=== PATIENT | female | born 1975 | race Caucasian/White ===

== ENCOUNTER 2023-03-14 10:33 | Outpatient (OUT) | payer BC, SELFPAY ==
--- NOTE | 2023-03-14 | MM_ITS ---
Patient Name: FRANCISCO JAVIER GUARDADO MR#: [id number] : 1975 Exam Date: 03/14/2023 Ordering Doctor: DR Polo Guardado . RADIOLOGY REPORT PROCEDURE: MM TOMOSYNTHESIS SCREENING BI COMPARISON: MG MAMM SCREEN 3D BRANT CAD, 03/13/2022. MG MAMM SCREEN 3D BRANT CAD, 03/08/2021. MG MAMM SCREEN BRANT W CAD, 03/05/2020. MG MAMM BRANT SCRN W CAD DIG, 12/30/2015. INDICATIONS: Screening for malignant neoplasm Calculator Name NCI Breast Cancer Risk Assessment Tool 5 Year Breast Cancer Risk 1.00% Lifetime Breast Cancer Risk 10.30% Personal Breast Cancer No Personal Ovarian Cancer No Treatments None Family Cancers None LOCATION: [facility] BREAST COMPOSITION: Scattered areas fibroglandular density. FINDINGS: DIAGNOSTIC CATEGORY 1--NEGATIVE. RIGHT BREAST: No significant suspicious finding. No significant change has occurred. LEFT BREAST: No significant suspicious finding. No significant change has occurred. RECOMMENDATIONS: ROUTINE MAMMOGRAM AND CLINICAL EVALUATION IN 12 MONTHS. PLEASE NOTE: A NORMAL MAMMOGRAM DOES NOT EXCLUDE THE POSSIBILITY OF BREAST CANCER. A CLINICALLY SUSPICIOUS PALPABLE LUMP SHOULD BE BIOPSIED. Dictated by: Erasto Bedoya M.D. on 03/16/2023 at 12:32 Approved by: Erasto Bedoya M.D. on 03/16/2023 at 12:35
== END 2023-03-14 10:34 | disposition home or self-care (01) ==
LOC: MAMMO 10:33
PROVIDERS: PCP Family Medicine; Visit Provider Obstetrics & Gynecology
DX: Z12.31 Encounter for screening mammogram for malignant neoplasm of breast (principal)
CPT/HCPCS: 77063; 77067

== ENCOUNTER 2024-03-10 09:42 | Outpatient (OUT) | payer BC, SELFPAY | END 2024-03-10 09:43 | disposition home or self-care (01) | LOC: PST 09:42 | PROVIDERS: PCP Family Medicine; Visit Provider Surgery | DX: Z01.818 Encounter for other preprocedural examination (principal); Z12.11 Encounter for screening for malignant neoplasm of colon ==

== ENCOUNTER 2024-03-19 10:29 | Outpatient (OUT) | payer BC, SELFPAY ==
--- NOTE | 2024-03-19 10:34 | MM_ITS ---
Patient Name: FRANCISCO JAVIER GUARDADO MR#: [id number] : 1975 Exam Date: 03/19/2024 Ordering Doctor: DR Polo Guardado . RADIOLOGY REPORT PROCEDURE: MM TOMOSYNTHESIS SCREENING BI COMPARISON: MG MAMM SCREEN 3D BRANT CAD, 03/13/2022. MM TOMOSYNTHESIS SCREENING BI, 03/14/2023. INDICATIONS: Screening Calculator Name NCI Breast Cancer Risk Assessment Tool 5 Year Breast Cancer Risk 1.00% Lifetime Breast Cancer Risk 10.20% Personal Breast Cancer No Personal Ovarian Cancer No Treatments None Family Cancers None LOCATION: [facility] BREAST COMPOSITION: There are scattered areas of fibroglandular density. FINDINGS: DIAGNOSTIC CATEGORY 2--BENIGN FINDING. NO CHANGE FROM COMPARISON. Scattered benign-appearing calcifications are present. Scattered benign-appearing lymph nodes are present. RIGHT BREAST: No significant suspicious finding. LEFT BREAST: No significant suspicious finding. RECOMMENDATIONS: ROUTINE MAMMOGRAM AND CLINICAL EVALUATION IN 12 MONTHS. PLEASE NOTE: A NORMAL MAMMOGRAM DOES NOT EXCLUDE THE POSSIBILITY OF BREAST CANCER. A CLINICALLY SUSPICIOUS PALPABLE LUMP SHOULD BE BIOPSIED. Dictated by: Otilio Reyes MD on 03/19/2024 at 14:00 Approved by: Otilio Reyes MD on 03/19/2024 at 14:02
== END 2024-03-19 10:30 | disposition home or self-care (01) ==
LOC: MAMMO 10:29
PROVIDERS: PCP Family Medicine; Visit Provider Obstetrics & Gynecology
DX: Z12.31 Encounter for screening mammogram for malignant neoplasm of breast (principal)
CPT/HCPCS: 77063; 77067

== ENCOUNTER 2024-04-02 08:41 | Day surgery (SDC) | payer BC, SELFPAY ==
--- NOTE | 2024-04-02 | OP_ITS ---
OPERATION DATE: 04/02/2024 PREOPERATIVE DIAGNOSIS: Colorectal screening. POSTOPERATIVE DIAGNOSIS: Right sided diverticulosis as well as moderate sigmoid diverticulosis. PROCEDURE: Colonoscopy to cecum. SURGEON: Levi Pfeiffer M.D. ANESTHESIA: Monitored anesthesia care. ESTIMATED BLOOD LOSS: Zero. INDICATIONS AND CONSENT: Patient is a 48-year-old female, presents for colorectal screening. Indications, risks, benefits, alternatives of proceeding with colonoscopy were explained extensively to the patient, including the risks of bleeding, colon perforation or anesthetic complications. All of her questions were answered. Informed consent was obtained. PROCEDURE: Patient brought to the operating room, placed in the left lateral decubitus position. Monitored anesthesia care was provided. Rectal exam was performed which showed no masses or blood. The scope was inserted into the anal canal. Under direct visualization, it was advanced. With the aid of abdominal compression, it was advanced to the cecum where cecal markings were clearly identified. There was noted to be a good prep. Upon withdrawal of the scope, mucosal surfaces were carefully examined. There were noted to be multiple right sided, large mouth diverticula in the cecum and proximal ascending colon, without inflammatory changes or scarring. There were no mass lesions or polyps. No inflammatory changes or ulcerations. There was moderate sigmoid diverticulosis without inflammatory changes or scarring. The scope was retroflexed in the anal canal. There were some prominent rectal veins, no significant hemorrhoidal disease. The scope was then withdrawn. Patient tolerated procedure well, was sent to recovery room in good condition. Follow up screening colonoscopy is recommended in 10 years. CC: Sreedhar Carmona M.D. NOY
[2024-04-02 09:05] VITALS: BP 141/78; PULSE 58; TEMP 36.1; O2SAT 99; BMI 31.6
[2024-04-02 09:10] LABS: Glucometer 109 mg/dL (74-106)
[2024-04-02] MEDS: 0.9 % SODIUM CHLORIDE 500 ML 50 ML IV (09:12)
[2024-04-02 09:13] LABS: HCG Qualitative NEGATIVE (NEGATIVE); Internal Control Within Normal Limits
[2024-04-02 09:52] VITALS: BP 106/62; PULSE 52; TEMP 36.2; O2SAT 99
[2024-04-02 10:07] VITALS: BP 101/64; PULSE 52; O2SAT 96
[2024-04-02 10:22] VITALS: BP 103/65; PULSE 45
== END 2024-04-02 10:22 | disposition home or self-care (01) ==
LOC: SURGOUT 08:42
PROVIDERS: Anesthesiology; PCP Family Medicine; Visit Provider Surgery
PROC: (CPT 45378; principal; 2024-04-02 09:30)
DX: Z12.11 Encounter for screening for malignant neoplasm of colon (principal); K57.30 Diverticulosis of large intestine without perforation or abscess without bleeding; I10 Essential (primary) hypertension; Z79.82 Long term (current) use of aspirin; Z79.84 Long term (current) use of oral hypoglycemic drugs; Z79.899 Other long term (current) drug therapy
CPT/HCPCS: 45378; 36415; 82948; 84703; J2704

== ENCOUNTER 2025-03-20 11:31 | Outpatient (OUT) | payer BC, SELFPAY ==
--- NOTE | 2025-03-20 11:34 | MM_ITS ---
Patient Name: FRANCISCO JAVIER OCONNOR MR#: [id number] : 1975 Exam Date: 03/20/2025 Ordering Doctor: DR ALIX NUNES . RADIOLOGY REPORT PROCEDURE: MM TOMOSYNTHESIS SCREENING BI COMPARISON: MM TOMOSYNTHESIS SCREENING BI, 03/19/2024. MM TOMOSYNTHESIS SCREENING BI, 03/14/2023. MG MAMM SCREEN 3D BRANT CAD, 03/13/2022. MG MAMM BRANT SCRN W CAD DIG, 12/30/2015. INDICATIONS: Screening Calculator Name NCI Breast Cancer Risk Assessment Tool 5 Year Breast Cancer Risk 1.00% Lifetime Breast Cancer Risk 10.00% Personal Breast Cancer No Personal Ovarian Cancer No Treatments None Family Cancers None LOCATION: [facility] BREAST COMPOSITION: There are scattered areas of fibroglandular density. FINDINGS: RIGHT BREAST: No significant suspicious finding. Benign-appearing calcifications are present. LEFT BREAST: No significant suspicious finding. Benign-appearing calcifications are present. DIAGNOSTIC CATEGORY 2--BENIGN FINDING. NO CHANGE FROM COMPARISON. RECOMMENDATIONS: ROUTINE MAMMOGRAM AND CLINICAL EVALUATION IN 12 MONTHS. Dictated by: Monroe Antonio MD on 03/20/2025 at 13:48 Approved by: Monroe Antonio MD on 03/20/2025 at 13:56
--- OUTSIDE RECORDS SUMMARY | 2025-03-20 11:35 | XMS_ITS | CCD ---
Author Organization [facility] Care Team Providers Care Soil Chemist Name Role Phone GEO, DR LUCAS Admitting Unavailable GEO, DR LUCAS Attending Unavailable GEO, DR LUCAS Consulting Unavailable HOY, DR THOMSON Primary Care Unavailable STEPANIC, DR JOHNSON Attending Unavailable STEPANIC, DR JOHNSON Consulting Unavailable STEPANIC, DR JOHNSON Admitting Unavailable HOY, DR THOMSON Primary Care Unavailable QUIROZ, DR VEGA Admitting Unavailable QUIROZ, DR VEGA Attending Unavailable ZIEBER, DR ERASTO [place] Consulting Unavailable MANJU, DR THOMSON Primary Care Unavailable QUIROZ, DR VEGA Consulting Unavailable STEPANIC, DR JOHNSON Attending Unavailable STEPANIC, DR JOHNSON Admitting Unavailable HOY, DR THOMSON Primary Care Unavailable QUIROZ, DR VEGA Attending Unavailable QUIROZ, DR VEGA Admitting Unavailable HOY, DR THOMSON Primary Care Unavailable GEO, DR LUCAS Admitting Unavailable HOY, DR THOMSON Primary Care Unavailable GEO, DR LUCAS Attending Unavailable GEO, DR LUCAS Consulting Unavailable ZIEBER, DR ERASTO [place] Consulting Unavailable QUIROZ, GARY Del Valle Attending Unavailable NANCI DORMAN Attending Unavailable NANCI DORMAN Attending Unavailable Alix Carmona MD Primary Care Provider [phone] MICHELA JAMIL Primary Care Physician MICHELA JAMIL Referring Unavailable Levi PERSAUD Attending Unavailable Levi PERSAUD Attending Unavailable Alix Carmona MD Primary Care Provider [phone] Allergies Allergy ClassificationReported Allergen(s)Allergy TypeDate of OnsetReaction(s) Facility (1 source)No Known Medication Allergies; Translations: [No Known Medication Allergies]Propensity to adverse reactions (disorder)[facility] Repository Medications Current Medications MedicationDrug Class(es)DatesSig (Normalized)Sig (Original)acyclovir 400 mg oral tablet (2 sources)Herpesvirus Nucleoside Analog DNA Polymerase Inhibitor, Herpes Simplex Virus Nucleoside Analog DNA Polymerase Inhibitor, Herpes Zoster Virus Nucleoside Analog DNA Polymerase InhibitorStart: 18-51-8241stsr 1 tablet by mouth at bedtimeacyclovir (Zovirax) 400 MG tablet Indications: Hx of cold sores TAKE 1 TABLET BY MOUTH IN THE MORNING AND BEFORE BEDTIME 180 tablet 1 10/22/2023 [id number] 200 actuat albuterol 0.09 mg/actuat metered dose inhaler (3 sources)beta2-Adrenergic AgonistStart: 05-07-2023 End: 95-34-2325yyrw 2 puff(s) by inhalation every four hours for wheezing albuterol HFA (Ventolin HFA) 90 mcg/act inhaler Indications: Upper respiratory tract infection, unspecified type Inhale 2 puffs every 4 (four) hours if needed for wheezing 18 g 1 05/07/2023 Activeamoxicillin 500 mg oral tablet (6 sources)Penicillin-class AntibacterialStart: 23-35-6997zbnr 4 tablets by mouth once at mealtimeamoxicillin (Amoxil) 500 MG tablet Indications: S/P TKR (total knee replacement), left 4 tabs PO once 30-60 mins before procedure with food 4 tablet 3 01/07/2024 Activeaspirin 81 mg delayed release oral tablet (4 sources)Platelet Aggregation Inhibitor, Nonsteroidal Anti-inflammatory Drug Start: 95-96-6634qhiz 1 tablet by mouth once dailyaspirin 81 mg Oral EC Tab 81 mg = 1 tab(s), Oral, Daily, Refills(s) 0 Start Date: 02/13/24 Status: Ordered hydroCHLOROthiazide 12.5 mg / lisinopril 20 mg oral tablet (4 sources)Thiazide Diuretic, Angiotensin Converting Enzyme InhibitorStart: 24-93-5153mqgi 1 tablet by mouth once dailyhydrochlorothiazide-lisinopril 12.5 mg-20 mg Tab 1 tab(s), Oral, Daily, Refill(s) 0 Start Date: 02/13/24 Status: Orderedtake 1 tablet by mouth in the morninglisinopril-hydroCHLOROthiazide 20- 12.5 MG tablet Take 1 tablet by mouth in the morning. ActivemetFORMIN hydrochloride 500 mg oral tablet (3 sources)BiguanideStart: 53-97-7926rkvt 1 tablet by mouth once dailymetformin 500 mg ER Tab 500 mg = 1 tab(s), Oral, Daily, Refills(s) 0 Start Date: 02/13/24 Status: OrderedStart: 11-19-2023 End: 58-97-8690lgho 1 tablet by mouth every twenty-four hours at mealtime metFORMIN XR (Glucophage-XR) 500 MG 24 hr tablet Indications: PCOS (polycystic ovarian syndrome) Take 1 tablet (500 mg) by mouth in the evening. Take with meals 90 tablet 3 11/19/2023 02/17/2024 ActivemethylPREDNISolone (3 sources)CorticosteroidStart: 89-08-5693ekwzkuAGORNHGxpnqv (Medrol Dospak) 4 MG tablets Indications: Upper respiratory tract infection, unspecified type Day 1: 6 tablets Day 2: 5 tablets Day 3: 4 tablets Day 4: 3 tablets Day 5: 2 tablets Day 6: 1 tablet 21 tablet 10/29/2023 ActiveMulti Vitamins oral tablet (1 source)Start: 20-68-3217dvhf 1 tablet by mouth once dailyMulti Vitamins oral tablet 1 tab(s), Oral, Daily, Refill(s) 0 Start Date: 02/13/24 Status: Ordered phentermine hydrochloride 37.5 mg oral tablet (17 sources)Sympathomimetic Amine AnorecticStart: 12-14-2022 End: 44-64-1711cuwd 1 tablet by mouth before mealtimephentermine (Adipex-P) 37.5 MG tablet Indications: Encounter for weight management Take 1 tablet (37.5 mg) by mouth in the morning. Take before meals. 90 tablet 01/25/2024 Active predniSONE 50 mg oral tablet (3 sources)Start: 57-14-2226wfyugjALZA (Deltasone) 50 MG tablet 1 (one) time each day at the same time. 07/03/2022 ActiveVitamin D2 2000 intl units oral capsule (1 source)Start: 64-05-9688tsbn 1 capsule by mouth once dailyVitamin D2 2000 intl units oral capsule 50 mcg = 1 cap(s), Oral, Daily, cap(s), Refills(s) 0 Start Date: 02/13/24 Status: Ordered Problems Active Problems Problem ClassificationProblemDateDocumented DateEpisodic/Chronic Administrative/social admission (1 source)Patient encounter status; Translations: [Persons encountering health services in other specified circumstances]84-82-8509PcxebxyxEuicqwfwz hypertension (1 source)Hypertensive nvwvtztu80-75-1362PydoszhNfktpbalxrkab and screening for infectious disease (1 source)Encounter for screening for human papillomavirus (HPV); Translations: [ENC SCREENING HUMAN PAPILLOMAVIRUS]Onset: 07-67-0110YxhwiikmOdhtx disorders and dislocations; trauma-related (3 sources)Derangement of right knee; Translations: [Unspecified internal derangement of right knee]Onset: 493845-59-7187KeiqadmMtbomlqjahfkux (9 sources)Osteoarthritis of knee; Translations: [Osteoarthritis of knee, unspecified]Onset: 254820-15-0563GbzvexnLheso connective tissue disease (4 sources)Presence of left artificial knee joint; Translations: [PRESENCE LEFT ARTIFICIAL KNEE JOINT]Onset: 86-73-1047DqpearfOtrpq connective tissue disease (3 sources)Artificial knee joint present; Translations: [Presence of unspecified artificial knee joint]Onset: 203639-08-8995IrrzoqsWamzi connective tissue disease (4 sources)History of total knee arthroplasty; Translations: [Presence of left artificial knee joint]Onset: 157696-95-9011RlovbkgXtcyr endocrine disorders (3 sources)Polycystic ovary syndrome; Translations: [Polycystic ovarian syndrome]Onset: 090432-23-3112VnwlhcrJxubk nutritional; endocrine; and metabolic disorders (1 source)Obesity caused by energy kfpasbouv16-31-6575IhwhefrMofpc screening for suspected conditions (not mental disorders or infectious disease) (5 sources)Encounter for screening for malignant neoplasm of cervix; Translations: [Encounter for screening mammogram for malignant neoplasm of breast]Onset: 07-44-3252ZwujrmnvHdycovvnperb (1 source)CONTACT W/AND (SUSP) EXPOS COVID-19; Translations: [CONTACT W/AND (SUSP) EXPOS COVID-19]Onset: 06-27-2021 Past or Other Problems Problem ClassificationProblemDateDocumented DateEpisodic/ChronicOther connective tissue disease (4 sources)Pain in left lower leg; Translations: [PAIN IN LEFT LOWER LEG]Onset: 73-76-1072DsrxninqIcakq connective tissue disease (3 sources)Pes anserinus bursitis of right knee; Translations: [Other bursitis of knee, right knee]Onset: 731174-68-7993MjateymhXphuq non-traumatic joint disorders (4 sources)Pain in right knee; Translations: [PAIN IN RIGHT KNEE]Onset: 02-30-1424NgchjemsOpqzw non-traumatic joint disorders (3 sources)Anterior knee pain; Translations: [Pain in right knee]Onset: 841043-97-8022MgqbzmabAphap non-traumatic joint disorders (3 sources)Pain in left knee; Translations: [Pain in joint, lower leg]Onset: 570954-22-0459Sctchdbz Results Test NameValueInterpretationReference RangeFacilityReminderson 04-03-2024 RemindersReminders From: Casie Broussard LPN To: N - Clinical; Sent: 04/03/2024 13:04:54 EST Show up: 03/03/2034 07:00:00 EST Subject: colonoscopy recall Due Date/Time: 04/02/2034 07:00:00 EST Reminder/Recall Patient due for screening colonoscopy 04/02/2034.[facility] TOMOS[facility]TH[facility] BIon 25-81-5738[place] [address] Mammography Report Signed Patient: FRANCISCO JAVIER GUARDADO MR#: [id number] : 1975 Acct:[id number] Age/Sex: 48 / F ADM Date: 03/19/24 Loc: MAMMO Attending Dr: Lance Guardado D.O. Ordering Physician: Lance Guardado D.O. Results: Date of Service: 03/19/24 Follow Up: Procedure(s): MM tomosynthesis screening BI Accession Number(s): [id number] cc: Lance Guardado D.O.; Alix Carmona M.D. Patient Name: FRANCISCO JAVIER GUARDADO MR#: [id number] : 1975 Exam Date: 03/19/2024 Ordering Doctor: DR Lance Guardado . RADIOLOGY REPORT PROCEDURE: MM TOMOSYNTHESIS SCREENING BI COMPARISON: MG MAMM SCREEN 3D BRANT CAD, 03/13/2022. MM TOMOSYNTHESIS SCREENING BI, 03/14/2023. INDICATIONS: Screening Calculator Name NCI Breast Cancer Risk Assessment Tool 5 Year Breast Cancer Risk 1.00% Lifetime Breast Cancer Risk 10.20% Personal Breast Cancer No Personal Ovarian Cancer No Treatments None Family Cancers None LOCATION: [facility] BREAST COMPOSITION: There are scattered areas of fibroglandular density. FINDINGS: DIAGNOSTIC CATEGORY 2--BENIGN FINDING. NO CHANGE FROM COMPARISON. Scattered benign-appearing calcifications are present. Scattered benign-appearing lymph nodes are present. RIGHT BREAST: No significant suspicious finding. LEFT BREAST: No significant suspicious finding. RECOMMENDATIONS: ROUTINE MAMMOGRAM AND CLINICAL EVALUATION IN 12 MONTHS. PLEASE NOTE: A NORMAL MAMMOGRAM DOES NOT EXCLUDE THE POSSIBILITY OF BREAST CANCER. A CLINICALLY SUSPICIOUS PALPABLE LUMP SHOULD BE BIOPSIED. Dictated by: Otilio Reyes MD on 03/19/2024 at 14:00 Approved by: Otilio Reyes MD on 03/19/2024 at 14:02 Dictated By: Otilio Reyes M.D. Signed By: 03/19/24 1403 DD/ 1402 TD/TT: Dynamic Etching Processor:TBHRadiology, RadiologistMD - 03/19/2024 [place] [address] Mammography Report Signed Patient: FRANCISCO JAVIER GUARDADO MR#: [id number] : 1975 Acct:[id number] Age/Sex: 48 / F ADM Date: 03/19/24 Loc: MAMMO Attending Dr: Lance Guardado D.O. Ordering Physician: Lance Guardado D.O. Results: Date of Service: 03/19/24 Follow Up: Procedure(s): MM tomosynthesis screening BI Accession Number(s): [id number] cc: Lance Guardado D.O.; Alix Carmona M.D. Patient Name: FRANCISCO JAVIER GUARDADO MR#: [id number] : 1975 Exam Date: 03/19/2024 Ordering Doctor: DR Lance Guardado . RADIOLOGY REPORT PROCEDURE: MM TOMOSYNTHESIS SCREENING BI COMPARISON: MG MAMM SCREEN 3D BRANT CAD, 03/13/2022. MM TOMOSYNTHESIS SCREENING BI, 03/14/2023. INDICATIONS: Screening Calculator Name NCI Breast Cancer Risk Assessment Tool 5 Year Breast Cancer Risk 1.00% Lifetime Breast Cancer Risk 10.20% Personal Breast Cancer No Personal Ovarian Cancer No Treatments None Family Cancers None LOCATION: [facility] BREAST COMPOSITION: There are scattered areas of fibroglandular density. FINDINGS: DIAGNOSTIC CATEGORY 2--BENIGN FINDING. NO CHANGE FROM COMPARISON. Scattered benign-appearing calcifications are present. Scattered benign-appearing lymph nodes are present. RIGHT BREAST: No significant suspicious finding. LEFT BREAST: No significant suspicious finding. RECOMMENDATIONS: ROUTINE MAMMOGRAM AND CLINICAL EVALUATION IN 12 MONTHS. PLEASE NOTE: A NORMAL MAMMOGRAM DOES NOT EXCLUDE THE POSSIBILITY OF BREAST CANCER. A CLINICALLY SUSPICIOUS PALPABLE LUMP SHOULD BE BIOPSIED. Dictated by: Otilio Reyes MD on 03/19/2024 at 14:00 Approved by: Otilio Reyes MD on 03/19/2024 at 14:02 Dictated By: Otilio Reyes M.D. Signed By: 03/19/24 1403 DD/ 140 TD/TT: Dynamic Etching Processor: [facility] HealthcareRadiology Study observation (narrative)[facility] TOMOSYNTHESIS SCREENING BIOrdered By: Radiologist Radiology on 21-08-1313[facility] Work Phone: pap ACOG PANEL 2: 30 to 65on 03-22-2022..NormalThe [facility] HospitalComment on above:Result Comment: Performed at: WBPerformed By: #### [id number] #### [facility] [address] [address] [address] Tasha Watts Gdln ACOG Xylxaiv84-47FdaydaUyfSelect Medical Specialty Hospital - AkronComment on above:Performed By: #### [id number] #### [facility] [address] [address] [address] Tasha SmithDIAGNOSIS:CommentWilson Street HospitalComment on above: Result Comment: NEGATIVE FOR INTRAEPITHELIAL LESION OR MALIGNANCY. CELLULAR CHANGES ASSOCIATED WITH INFLAMMATION ARE PRESENT. THIS SPECIMEN WAS RESCREENED PART OF OUR MACHINE SHOP APPRENTICE PROGRAM. Performed at: WBPerformed By: #### [id number] #### [facility] [address] [place] [address] Dr. Tasha Carlson AptimaNegativeNormalNegativeWayne Hospital on above:Result Comment: This nucleic acid amplification test detects fourteen high-risk HPV types (16,18,31,33,35,39,45,51,52,56,58,59,66,68) without differentiation. Performed at: =GPerformed By: #### [id number] #### [facility] [address] [place] [address] Dr. Tasha Carlson Genotype ReflexCommentNoOhioHealth on above:Result Comment: Criteria not met, HPV Genotype not performed. Performed at: WBPerformed By: #### [id number] #### [place] [address] Dr[address] Tasha SmithMethodology:CommentNoOhioHealth on above: Result Comment: This liquid based ThinPrep(R) pap test was screened with the use of an image guided system. Performed at: WBPerformed By: #### [id number] #### [place] [address] Dr[address] Tasha SmithNote:CommentKindred Hospital Lima on above:Result Comment: The Pap smear is a screening test designed to aid in the detection of premalignant and malignant conditions of the uterine cervix. It is not a diagnostic procedure and should not be used as the sole means of detecting cervical cancer. Both false-positive and false-negative reports do occur. . Performed at: WBPerformed By: #### [id number] #### [facility] [address] [place] [address] Dr. Tasha SmithPerformed by:CommentNoOhioHealth on above: Result Comment: Cherri Feldman Furniture Mover Driver (ASCP) Performed at: WBPerformed By: #### [id number] #### [facility] [address] [place] [address] Dr. Tasha Smith reviewed by:CommentNationwide Children's Hospitalment on above:Result Comment: Marianne Landry, Supervisory Furniture Mover Driver (ASCP) Performed at: WBPerformed By: #### [id number] #### [facility] [address] [address] [address] Tasha SmithSpecimen adequacy:CommentKindred Hospital Lima on above:Result Comment: Satisfactory for evaluation. Endocervical and/or squamous metaplastic cells (endocervical component) are present. Performed at: WBPerformed By: #### [id number] #### [facility] [address] [address] [address] Tasha SmithMG MAMM SCREEN 3D BRANT CADon 25-18-9310SP MAMM SCREEN 3D BRANT CAD Patient: FRANCISCO JAVIER GUARDADO Exam Date: 03/13/2022 : 1975 Gender:F Ordering : DR LANCE GUARDADO . Admission #: [id number] Family : DR ALIX CARMONA . Order #: [id number] CLICK HERE TO VIEW EXAM RADIOLOGY REPORT PROCEDURE: MAMMOGRAM SCREENING 3D BILATERAL CAD COMPARISON: MG MAMM SCREEN 3D BRANT CAD, 03/08/2021. MG MAMM SCREEN BRANT W CAD, 03/05/2020. INDICATIONS: Screening mammography Calculator Name NCI Breast Cancer Risk Assessment Tool 5 Year Breast Cancer Risk 0.90% Lifetime Breast Cancer Risk 10.50% Personal Breast Cancer No Personal Ovarian Cancer No Treatments None Family Cancers None LOCATION: [facility] BREAST COMPOSITION: Scattered areas fibroglandular density. FINDINGS: DIAGNOSTIC CATEGORY 1--NEGATIVE. RIGHT BREAST: No significant suspicious finding. No significant change has occurred. LEFT BREAST: No significant suspicious finding. No significant change has occurred. RECOMMENDATIONS: ROUTINE MAMMOGRAM AND CLINICAL EVALUATION IN 12 MONTHS. PLEASE NOTE: A NORMAL MAMMOGRAM DOES NOT EXCLUDE THE POSSIBILITY OF BREAST CANCER. A CLINICALLY SUSPICIOUS PALPABLE LUMP SHOULD BE BIOPSIED. Dictated by: Erasto Bedoya M.D. on 03/13/2022 at 15:57 Approved by: Erasto Bedoya M.D. on 03/13/2022 at 15:59[facility] ELODIA DOP LEG LTon 68-20-0179ZV ELODIA DOP LEG LTEXAMINATION: US ELODIA DOP LEG LT HISTORY: Pain of left lower leg ; left knee replacement 3 weeks ago COMPARISON: No relevant comparison available. FINDINGS: REGION: Left lower extremity THROMBI: None. COMPRESSIBILITY: Normal compressibility. FLOW: Normal waveform and antegrade flow between 5 and 20 cm/s. OTHER: None. IMPRESSION: 1. No deep vein thrombus within the left lower extremity. Electronically authenticated by: ERASTO BEDOYA Date: 2021-07-21 15:31NoSelect Medical Specialty Hospital - AkronCovid-19 PCR ([facility])on 69-72-2826REBB-CoV-2 (COVID-19) RNA FLOR+probe Ql (Unsp spec)Not detectedNormalNOT DETECTEDThe [facility] Comment on above:Result Comment: This test is not yet approved or cleared by the [place] FDA. When there are no FDA-approved or cleared tests available, and other criteria are met, FDA can make tests available under an emergency access mechanism called an Emergency Use Authorization (EUA). The EUA for this test is supported by the [place] of Health and Human Service's (HHS's) declaration that circumstances exist to justify the emergency use of in vitro diagnostics for the detection and/or diagnosis of the virus that causes COVID- 19. This EUA will remain in effect (meaning this test can be used) for the duration of the COVID-19 declaration justifying emergency of IVDs, unless it is terminated or revoked by FDA (after which the test may no longer be used). When diagnostic testing is negative, the possibility of a false negative should be considered in the context of a patient's recent exposures and the presence of clinical signs and symptoms consistent with SARS-CoV-2.Performed By: #### CVDTB #### [facility] [address] [address] [address] Tasha Smith Vital Signs Date TimeVital SignValuePerforming CpagbcoyyDussynwi81-43-4948 11:310400Body axbkrp645 cmCitizens Memorial Healthcare10-11-2024 11:31-0400Body mass index (BMI) [Ratio]32.02 kg/m2[facility]10-11-2024 11:31-0400Body ygaypx64.99 kgNoms NurseUTAH VALLEY H[facility] Zuhnopulyh20-17-7329 11:31-0400Diastolic blood yerkxcow73 mm[Hg]Noms NurseUTAH VALLEY [facility] Uqehtixkzx60-42-8446 11:31-0400Systolic blood gbpyzvpy074 mm[Hg]Nom NurseUTAH VALLEY HOSPITAL Healthcare Encounters Encounter DateEncounter TypeCare ProviderFacilityStart: 04-02-2024 End: 71-24-6517ovgrchzmjkHvpsykn R NILLFacility:CD:[id number]: 03-19-2024 End: 73-09-9171Qpczxgauf Result EncounterCorey Geo DO Work Phone: NOJI External Department UnsolicitedStart: 03-19-2024 End: 24-60-5563Lioshgsdi Result EncounterCorey Geo DO Work Phone: NOKL External Department UnsolicitedStart: 03-04-2024 End: 64-23-0547amoyjsembtACWKIV S CRAMERFacility: BellevueStart: 03-04-2024 End: 91-61-6317Shkbsfg encounter procedureMichael R NILL 398-9247Wnvxjm-Jzgdy [facility] [place] Start: 53-60-1486ktlhsfhqriHVXPLC CRAMERFacility:EMMA BellevueStart: 01-25-2024 End: 68-19-2220jsxggoctobOXUYJIL RICHIENot AvailableStart: 01-25-2024 End: 86-70-8317Yxizun outpatient visit 5 minutesNoms Bcp Ob Geo NurseNOMS BCP OBComment on above:Encounter for weight managementStart: 01-07-2024 End: 32-31-7782Zkjjycypn encounterMaria Olvin Castro MASTER COOK Work Phone: [facility] CI ORTHOPAEDICSComment on above:dentistStart: 08-13-2023 End: 53-66-8902wprntjhckoCWJ RAMEYNot AvailableStart: 03-22-2023 End: 33-48-5518wpuabjcglqPMK RAMEYNot AvailableStart: 03-12-2023 End: 81-95-1087nrkikvhzuwOQWKBXW J MEYERGloria AvailableStart: 03-13-2022 End: 98-00-9662cgqipqaqbyZG LANCE FAZIOFacility:S4Svnaf: 03-13-2022 End: 25-50-5009xomtslyujhXJ LANCE FAZIOFacility:M9Gnhou: 07-21-2021 End: 17-50-9499fsutjengkkFC GARY QUIROZFacility:V8Xqrhn: 07-15-2021 End: 58-30-5210lwlfzmkrrqRZ GARY Rangelcility:F1Wtbjt: 13-40-9641Kcesmuyee for preprocedural laboratory examinationDR [facility] Start: 06-25-2021 End: 03-95-9793fexxpqnsnjWJ ALEX [facility]ITALFacility:N5Ejvsj: 06-25-2021 End: 31-02-0676Orcogmrws for preprocedural laboratory examinationDR ALEX [facility] Illcility:E2Rnhye: 04-17-2021 End: 96-50-4680fempudpddoHA ALEX [facility] Illcility:H1 Procedures DateProcedureProcedure DetailPerforming ClinicianStart: 61-84-5531Iqcczjbjgpw Lance Geo DO Work Phone: Start: 76-53-9462VR TOMOSYNTHESIS SCREENING BICorey Geo DO Work Phone: Start: 87-72-7599GqolwgaiicsKdles Geo DO Work Phone: Start: 55-31-4364Gaysuovgozj observation [Identifier] in Cervix by Cyto stainCorey Geo DO Work Phone: appendectomyMichael NILL Arthroscopy of kneeMichael NILL Cesarean sectionMichael NILL Repair of joint of left kneeMichael NILL Repair of ventral herniaMichael NILL Tonsillectomy and adenoidectomyMichael NILL Plan of Treatment DateCare ActivityDetailAuthorStart: 88-43-4283Iwfvhlfdl for malignant neoplasm of colonNOMS HealthcareStart: 41-14-7286Pnhavbwro for malignant neoplasm of cervixNOMS HealthcareStart: 16-41-3800Razmgznvr for malignant neoplasm of breast MammogramNOMS HealthcareStart: 81-78-0886Papgomyyw vaccinationInfluenza Vaccine (#1)NOMS HealthcareStart: 81-70-9866Gvsukebst for malignant neoplasm of colon FOBTNOMS HealthcareStart: 53-81-7720Nctamncjt for malignant neoplasm of colon [facility] Immunizations Immunization DateImmunizationNotesCare BpzieewnBeayizpp86-87-9361bkbkarinz virus vaccine, unspecified formulationCorey Geo DO Work Phone: [facility] Payers DatePayer CategoryPayerPolicy [id number] Health InsuranceHEALTH DESIGN PLUS [id number] DESIGN PLUS CONTIGO [id number] 2022-Present [phone] [address] [place] [id number] [id number] 2.16.840.1.384518.3.57[id number] 2.16.840.1.625642.3.57[id number] 2.16.840.1.901849.3.57[id number] 2.16.840.1.606096.3.57[id number] 2.16.840.1.712772.3.57[id number] 2.16.840.1.320393.3.57[id number] 2.16.840.1.180311.3.57[id number] 2.16.840.1.292847.3.57[id number] 2.16.840.1.375974.3.57[id number] 2.16.840.1.702752.3.57[id number] 2.16.840.1.152265.3.57[id number] 2.16.840.1.271214.3.579.[id number] Social History DateTypeDetailFacilityStart: 03-44-1052Qswmlbu smoking status NHISEx-smokerNOMS HealthcareHistory of tobacco useCurrent smokerNOMS HealthcareHistory of tobacco useCigarette SmokerNOMS HealthcareStart: 91-82-8494Hmysnyu use and exposure Smokeless tobacco non-userNOMN HealthcareStart: 55-36-2788Nwpsmqxkr beverage intakeCurrent drinker of alcohol (finding)NOMS HealthcareStart: 02-14-2023 End: 14-00-5458Zshxwtpah beverage intakeNOMN HealthcareStart: 02-14-2023 End: 24-82-5548Hdvfyon Use Disorder Identification Test - Consumption [AUDIT-C] N[facility]S HealthcareHow often to you have a drink containing alcohol?2-4 times a monthNOMN HealthcareHow many standard drinks containing alcohol do you have on a typical day?1 or 2NOMS HealthcareHow often do you have 6 or more drinks on 1 occasion?NeverNOMN HealthcareStart: 02-49-0642Aqzxaom CommentQuit smoking 2.5 years agoNHOLDENVILLE GENERAL [facility] HealthcareStart: 87-94-2214Kreapat Comment1-2 drinks 2-4 x a month in the past yearNOMN HealthcareStart: [id number] assigned at birthNot on fileNOMetropolitan Saint Louis Psychiatric CenterTobacco smoking statusNo Smoking Status EnteredC[facility]innati [facility] Start: [id number] Healthcare History of Present illness Narrative 01-25-2024 Note Date & [id number] History of Present illness Narrative* Diane Celestine - 01/25/2024 11:00 AM EDT Reason for Appointment: Patient ID: Francisco Javier Guardado is a 48 y.o. female who presents for No chief complaint on file. Patient presents today for a weight management consultation. Patient has been prescribed Adipex. Today's Vitals: Estimated body mass index is 32.02 kg/m as calculated from the following: Height as of this encounter: 5' 3 . Weight as of this encounter: 180 lb 12 oz. Previous Weight/BMI: Wt Readings from Last 2 Encounters: 01/25/24 180 lb 12 oz 08/13/23 194 lb 6.4 oz BMI Readings from Last 2 Encounters: 01/25/24 32.02 kg/m 04/29/24 34.44 kg/m Allergies as of 01/25/2024 (No Known Allergies) Past Medical History: Diagnosis Date Hypertension (CMS/HCC) PCOS (polycystic ovarian syndrome) Past Surgical History: Procedure Laterality Date ADENOIDECTOMY 2017 APPENDECTOMY 2017 APPENDECTOMY & HERNIA REPAIR SECTION, CLASSIC /2007 KNEE SURGERY 1993 LEFT KNEE ARTHROSCOPY - DR. WEBER1993 OTHER SURGICAL HISTORY 01/20/2021 (R) KNEE SCOPE - DR MCKEON TONSILLECTOMY 2017 TOTAL KNEE ARTHROPLASTY Left 06/28/2021 (L) TKA - DR MCKEON Assessment/Plan Encounter Diagnosis Name Primary? Encounter for weight management Adipex: Patient presents today for Adipex prescription. Patients weight and blood pressure has been captured and discussed with the patient. I have discussed/reiterated the importance of keeping a food journal, proper nutrition/diet, and exercise regimen while taking Adipex. Patient verbalized understanding and was given a printed prescription signed by provider to take to their local pharmacy. Follow Up: Patient is to return to the office in 1 month for further evaluation to assess patient progress. Weight and blood pressure will need to be obtained in order for patient to receive next prescription. Documented by: Diane Sprague on behalf of * No providers found * [facility] Tele[facility] Note 01-07-2024 Note Date & [id number] Telephone encounter Note* Telephone Encounter - Fernie Gonzales NP - 01/07/2024 3:22 PM EDT Rx sent [facility] Note 01-07-2024 Note Date & [id number] Miscellaneous Notes* Telephone Encounter - Fernie Gonzales NP - 01/07/2024 3:22 PM EDT Rx sent * Telephone Encounter - Laquita Pelayo - 01/07/2024 2:07 PM EDT Pt called and stated she had LT TKA 06/28/21 and has dentist appt on Sunday, if Amoxicillin couldbe called into [facility]. Her call back [phone] [facility] Tele[facility] encounter Note 01-07-2024 Note Date & [id number] Telephone encounter Note* Telephone Encounter - Laquita Pierce - 01/07/2024 2:07 PM EDT Pt called and stated she had LT TKA 06/28/21 and has dentist appt on Sunday, if Amoxicillin couldbe called into [facility]. Her call back [phone] [facility] Healthcare Evaluation + Plan note Note Date & TypeNoteFacilityEvaluation + Plan note No data available for this section [facility] Evaluation note Note Date & TypeNoteFacilityEvaluation note* Diagnosis Encounter for weight management documented in this encounter [facility] Healthcare Evaluation note Note Date & TypeNoteFacilityEvaluation note* Diagnosis S/P TKR (total knee replacement), left- Primary documented in this encounter [facility] Discharge instructions Note Date & TypeNoteFacilityHospital Discharge instructions No data available for this section [facility] Progress note Note Date & TypeNoteFacilityProgress note No data available for this section [facility] Summary Purpose Family History No Family History Records FoundNo Family History Records Found No data available for this section No Family History Records Found Advance Directives No Advanced Directives Records FoundNo Advanced Directives Records FoundNo Advanced Directives Records Found Additional Source Comments INFORMATION SOURCE (unrecogn ized section and content) DATE CREATED AUTHOR 03/23/2022 [facility] DATE CREATED AUTHOR AUTHOR'S ORGANIZ ATION 01/28/2024 [facility] DATE CREATED AUTHOR 'S ORGANIZ ATION 04/09/2024 [facility] Care Teams (unrecognized sec tion and content) Team MemberRelationshipSpecialtyStart DateEnd Date Alix Carmona MD [address] [place] [facility] [place] [address] PCP - [facility]08/22/22Team MemberRelationshipSpecialtyStart DateEnd Date Alix Carmona MD [address] [place] [facility] [place] [address] PCP - [facility]08/22/22Te MemberRelationshipSpecialtyStart DateEnd Date Alix Carmona MD [address] [place] [facility] [place] [address] PCP - [facility]08/22/22 Reason for Visit (unrecogniz ed section and content) ReasonOnset UxtbApjvsxjeojxdevo13/23/2024 FOR RECORDS PERTAINING TO PATIENTS WHO ARE OR HAVE BEEN ENROLLED IN A CHEMICAL DEPENDENCY/SUBSTANCEABUSE PROGRAM, SOME INFORMATION MAY BE OMITTED. This clinical summary was aggregated from multiple sources. Caution should be exercised in using it in the provision of clinical care. This summary normalizes information from multiple sources, and as a consequence, information in this document may materially change the coding, format and clinical context of patient data. In addition, data may be omitted in some cases. CLINICAL DECISIONS SHOULD BE BASED ON THE PRIMARY CLINICAL RECORDS. [facility] [employer] [facility] provides no warranty or guarantee of the accuracy or completeness of information in this document.
== END 2025-03-20 11:32 | disposition home or self-care (01) ==
LOC: MAMMO 11:31
PROVIDERS: PCP Family Medicine; Visit Provider Family Medicine
DX: Z01.419 Encounter for gynecological examination (general) (routine) without abnormal findings (principal); Z12.31 Encounter for screening mammogram for malignant neoplasm of breast
CPT/HCPCS: 77063; 77067; 87624; 88175

== ENCOUNTER 2025-03-20 14:35 | Outpatient (REF) | payer BC, SELFPAY ==
--- OUTSIDE RECORDS SUMMARY | 2025-03-20 14:39 | XMS_ITS | CCD ---
Author Organization [facility] Care Team Providers Care Maid Supervisor Name Role Phone GEO, DR LUCAS Admitting [...] Unavailable HOY, DR THOMSON Primary Care Unavailable QUIORZ, DR VEGA Attending Unavailable QUIROZ, DR VEGA Admitting Unavailable HOY, DR THOMSON Primary Care Unavailable GEO, DR LUCAS Admitting Unavailable HOY, DR THOMSON Primary Care Unavailable GEO, DR LUCAS Attending Unavailable GEO, DR LUCAS Consulting Unavailable ZIEBER, DR ERASTO [place] Consulting Unavailable QUIROZ, GARY Del Valle Attending Unavailable NANCI DORMAN Attending Unavailable NANCI DORMAN Attending Unavailable Alix Carmona MD Primary Care Provider [phone] MICHELA JAMIL Primary Care Physician [phone] MICHELA JAMIL Referring Unavailable Levi PERSAUD Attending Unavailable eLvi PERSAUD Attending Unavailable Alix Carmona MD Primary Care Provider [phone] Allergies Allergy ClassificationReported Allergen(s)Allergy TypeDate of OnsetReaction(s) Facility (1 source)No Known Medication Allergies; Translations: [No Known Medication Allergies]Propensity to adverse reactions (disorder)[facility] Repository Medications Current Medications MedicationDrug Class(es)DatesSig (Normalized)Sig (Original)acyclovir 400 mg oral tablet (2 sources)Herpesvirus Nucleoside Analog DNA Polymerase Inhibitor, Herpes Simplex Virus Nucleoside Analog DNA Polymerase Inhibitor, Herpes Zoster Virus Nucleoside Analog DNA Polymerase InhibitorStart: 81-01-2294kmoq 1 tablet by mouth at bedtimeacyclovir (Zovirax) 400 MG tablet Indications: Hx of cold sores TAKE 1 TABLET BY MOUTH IN THE MORNING AND BEFORE BEDTIME 180 tablet 1 10/22/2023 Muvjrsbsr561530 200 actuat albuterol 0.09 mg/actuat metered dose inhaler (3 sources)beta2-Adrenergic AgonistStart: 05-07-2023 End: 62-90-5928tckl 2 puff(s) by inhalation every four hours for wheezing albuterol HFA (Ventolin HFA) 90 mcg/act inhaler Indications: Upper respiratory tract infection, unspecified type Inhale 2 puffs every 4 (four) hours if needed for wheezing 18 g 1 05/07/2023 Activeamoxicillin 500 mg oral tablet (6 sources)Penicillin-class AntibacterialStart: 23-48-9630tpcq 4 tablets by mouth once at mealtimeamoxicillin (Amoxil) 500 MG tablet Indications: S/P TKR (total knee replacement), left 4 tabs PO once 30-60 mins before procedure with food 4 tablet 3 01/07/2024 Activeaspirin 81 mg delayed release oral tablet (4 sources)Platelet Aggregation Inhibitor, Nonsteroidal Anti-inflammatory Drug Start: 75-42-4584ywbi 1 tablet by mouth once dailyaspirin 81 mg Oral EC Tab 81 mg = 1 tab(s), Oral, Daily, Refills(s) 0 Start Date: 02/13/24 Status: Ordered hydroCHLOROthiazide 12.5 mg / lisinopril 20 mg oral tablet (4 sources)Thiazide Diuretic, Angiotensin Converting Enzyme InhibitorStart: 66-68-3448ccxa 1 tablet by mouth once dailyhydrochlorothiazide-lisinopril 12.5 mg-20 mg Tab 1 tab(s), Oral, Daily, Refill(s) 0 Start Date: 02/13/24 Status: Orderedtake 1 tablet by mouth in the morninglisinopril-hydroCHLOROthiazide 20- 12.5 MG tablet Take 1 tablet by mouth in the morning. ActivemetFORMIN hydrochloride 500 mg oral tablet (3 sources)BiguanideStart: 31-58-3551rvik 1 tablet by mouth once dailymetformin 500 mg ER Tab 500 mg = 1 tab(s), Oral, Daily, Refills(s) 0 Start Date: 02/13/24 Status: OrderedStart: 11-19-2023 End: 52-31-1040fcoy 1 tablet by mouth every twenty-four hours at mealtime metFORMIN XR (Glucophage-XR) 500 MG 24 hr tablet Indications: PCOS (polycystic ovarian syndrome) Take 1 tablet (500 mg) by mouth in the evening. Take with meals 90 tablet 3 11/19/2023 02/17/2024 ActivemethylPREDNISolone (3 sources)CorticosteroidStart: 69-20-3857uukduqOMZQFCVspaxh (Medrol Dospak) 4 MG tablets Indications: Upper respiratory tract infection, unspecified type Day 1: 6 tablets Day 2: 5 tablets Day 3: 4 tablets Day 4: 3 tablets Day 5: 2 tablets Day 6: 1 tablet 21 tablet 10/29/2023 ActiveMulti Vitamins oral tablet (1 source)Start: 62-94-6236dqva 1 tablet by mouth once dailyMulti Vitamins oral tablet 1 tab(s), Oral, Daily, Refill(s) 0 Start Date: 02/13/24 Status: Ordered phentermine hydrochloride 37.5 mg oral tablet (17 sources)Sympathomimetic Amine AnorecticStart: 12-14-2022 End: 42-05-8379ojmm 1 tablet by mouth before mealtimephentermine (Adipex-P) 37.5 MG tablet Indications: Encounter for weight management Take 1 tablet (37.5 mg) by mouth in the morning. Take before meals. 90 tablet 01/25/2024 Active predniSONE 50 mg oral tablet (3 sources)Start: 99-68-4859vcdtiiHBZU (Deltasone) 50 MG tablet 1 (one) time each day at the same time. 07/03/2022 ActiveVitamin D2 2000 intl units oral capsule (1 source)Start: 81-24-8543egpf 1 capsule by mouth once dailyVitamin D2 2000 intl units oral capsule 50 mcg = 1 cap(s), Oral, Daily, cap(s), Refills(s) 0 Start Date: 02/13/24 Status: Ordered Problems Active Problems Problem ClassificationProblemDateDocumented DateEpisodic/Chronic Administrative/social admission (1 source)Patient encounter status; Translations: [Persons encountering health services in other specified circumstances]43-44-4062XwytkpvnJguphjubq hypertension (1 source)Hypertensive ckslnknu11-47-9390NctbjypGakyjzjfbbtay and screening for infectious disease (1 source)Encounter for screening for human papillomavirus (HPV); Translations: [ENC SCREENING HUMAN PAPILLOMAVIRUS]Onset: 02-95-9020IjgueupgBbsey disorders and dislocations; trauma-related (3 sources)Derangement of right knee; Translations: [Unspecified internal derangement of right knee]Onset: 408331-13-9170JdcufuvGmmayjqttftzyk (9 sources)Osteoarthritis of knee; Translations: [Osteoarthritis of knee, unspecified]Onset: 178781-63-0501PvcfighLtdgu connective tissue disease (4 sources)Presence of left artificial knee joint; Translations: [PRESENCE LEFT ARTIFICIAL KNEE JOINT]Onset: 23-40-4886RieodjoBjyob connective tissue disease (3 sources)Artificial knee joint present; Translations: [Presence of unspecified artificial knee joint]Onset: 693856-49-6264QmqrwtnEcgzn connective tissue disease (4 sources)History of total knee arthroplasty; Translations: [Presence of left artificial knee joint]Onset: 861979-47-7731EbglbwoEnjeq endocrine disorders (3 sources)Polycystic ovary syndrome; Translations: [Polycystic ovarian syndrome]Onset: 665750-08-7484InivdncGbnvp nutritional; endocrine; and metabolic disorders (1 source)Obesity caused by energy jiagibjdp83-26-0603MvmpdfnYxfeg screening for suspected conditions (not mental disorders or infectious disease) (5 sources)Encounter for screening for malignant neoplasm of cervix; Translations: [Encounter for screening mammogram for malignant neoplasm of breast]Onset: 80-76-0475XgarsmjlGifseueufybm (1 source)CONTACT W/AND (SUSP) EXPOS COVID-19; Translations: [CONTACT W/AND (SUSP) EXPOS COVID-19]Onset: 06-27-2021 Past or Other Problems Problem ClassificationProblemDateDocumented DateEpisodic/ChronicOther connective tissue disease (4 sources)Pain in left lower leg; Translations: [PAIN IN LEFT LOWER LEG]Onset: 77-44-1090CscyyvztZfbeh connective tissue disease (3 sources)Pes anserinus bursitis of right knee; Translations: [Other bursitis of knee, right knee]Onset: 160977-27-9428JflxochaAmine non-traumatic joint disorders (4 sources)Pain in right knee; Translations: [PAIN IN RIGHT KNEE]Onset: 31-92-2073BhsqetmwTjloq non-traumatic joint disorders (3 sources)Anterior knee pain; Translations: [Pain in right knee]Onset: 892501-40-7281JwkdyzugOzlsi non-traumatic joint disorders (3 sources)Pain in left knee; Translations: [Pain in joint, lower leg]Onset: 950186-73-4059Cnxdkbyu Results Test NameValueInterpretationReference RangeFacilityReminderson 04-03-2024 RemindersReminders From: Casie Broussard LPN To: N - Clinical; Sent: 04/03/2024 13:04:54 EST Show up: 03/03/2034 07:00:00 EST Subject: colonoscopy recall Due Date/Time: 04/02/2034 07:00:00 EST Reminder/Recall Patient due for screening colonoscopy 04/02/2034.[facility]MM TOMOSYNTHESIS SCREENING BIon 94-40-6209[place] [address] Mammography Report Signed Patient: FRANCISCO JAVIER GUARDADO MR#: [id number] : 1975 Acct:[id number] Age/Sex: 48 / F ADM Date: 03/19/24 Loc: MAMMO Attending Dr: Lance Guardado D.O. Ordering Physician: Lance Guardado D.O. Results: Date of Service: 03/19/24 Follow Up: Procedure(s): MM tomosynthesis screening BI Accession Number(s): [id number] cc: Lance Guardado D.O.; Alix Carmona M.D. Patient Name: FRANCISCO JAVIER GUARDADO MR#: [id number] : 1975 Exam Date: 03/19/2024 Ordering Doctor: [...] Treatments None Family Cancers None LOCATION: [facility] BREAST COMPOSITION: There are scattered areas of [...] Signed By: 03/19/24 1403 DD/ 1402 TD/TT: Accounting Director:TBHRadiology, RadiologistMD - 03/19/2024 [place] [address] Mammography Report Signed Patient: FRANCISCO JAVIER GUARDADO MR#: [id number] : 1975 Acct:[id number] Age/Sex: 48 / F ADM Date: 03/19/24 Loc: MAMMO Attending Dr: Lance Guardado D.O. Ordering Physician: Lance Guardado D.O. Results: Date of Service: 03/19/24 Follow Up: Procedure(s): MM tomosynthesis screening BI Accession Number(s): [id number] cc: Lance Guardado D.O.; Alix Carmona M.D. Patient Name: FRANCISCO JAVIER GUARDADO MR#: [id number] : 1975 Exam Date: 03/19/2024 Ordering Doctor: [...] Treatments None Family Cancers None LOCATION: [facility] BREAST COMPOSITION: There are scattered areas of [...] Signed By: 03/19/24 1403 DD/ 140 TD/TT: Accounting Director: [facility] WashingtonRadiology Study observation (narrative)[facility] TOMOSYNTHESIS SCREENING BIOrdered By: Radiologist Radiology on 05-94-9618[facility] Work Phone: pap ACOG PANEL 2: 30 to 65on 03-22-2022..NormalThe [facility]zer [facility] – JacksonComment on above:Result Comment: Performed at: WBPerformed By: #### [id number] #### [facility] [address] [address] [address] Tasha Watts Gdln ACOG Tmroajh71-73FklesxDmvSelect Medical Specialty Hospital - Southeast OhioComment on above:Performed By: #### [id number] #### [facility] [address] [address] [address] Tasha SmithDIAGNOSIS:CommentWilson Memorial HospitalComment on above: Result Comment: NEGATIVE FOR INTRAEPITHELIAL LESION OR MALIGNANCY. CELLULAR CHANGES ASSOCIATED WITH INFLAMMATION ARE PRESENT. THIS SPECIMEN WAS RESCREENED PART OF OUR MEDICAL SUPPORT SPECIALIST PROGRAM. Performed at: WBPerformed By: #### [id number] #### [facility] [address] [place] [address] Dr. Tasha Carlson AptimaNegativeNormalNegativeLouis Stokes [facility] on above:Result Comment: This nucleic acid amplification test detects fourteen high-risk HPV types (16,18,31,33,35,39,45,51,52,56,58,59,66,68) without differentiation. Performed at: =GPerformed By: #### [id number] #### [facility] [address] [place] [address] Dr. Tasha Carlson Genotype ReflexCommentNoSelect Medical [facility] [place] on above:Result Comment: Criteria not met, HPV Genotype not performed. Performed at: WBPerformed By: #### [id number] #### [address] [address] [address] Tasha SmithMethodology:CommentNoSelect Medical [facility] Clinic [facility], [place] on above: Result Comment: This liquid based ThinPrep(R) pap test was screened with the use of an image guided system. Performed at: WBPerformed By: #### [id number] #### [address] [place] [address] [address] Tasha SmithNote:CommentMartin Memorial Hospital on above:Result Comment: The Pap smear is a screening test designed to aid in the detection of premalignant and malignant conditions of the uterine cervix. It is not a diagnostic procedure and should not be used as the sole means of detecting cervical cancer. Both false-positive and false-negative reports do occur. . Performed at: WBPerformed By: #### [id number] #### [facility] [address] [place] [address] Dr. Tasha SmithPerformed by:CommentNoSelect Medical [facility] Clinic Rehabilitation [facility], [place] on above: Result Comment: Cherri Feldman Piece Cutter (ASCP) Performed at: WBPerformed By: #### [id number] #### [facility] [address] [place] [address] Dr. Tasha Smith reviewed by:CommentShelby Memorial Hospitalment on above:Result Comment: Marianne Landry, Supervisory Piece Cutter (ASCP) Performed at: WBPerformed By: #### [id number] #### [facility] [address] [address] [address] Tasha SmithSpecimen adequacy:CommentMartin Memorial Hospital on above:Result Comment: Satisfactory for evaluation. Endocervical and/or squamous metaplastic cells (endocervical component) are present. Performed at: WBPerformed By: #### [id number] #### [facility] [address] [address] [address] Tasha SmithMG MAMM SCREEN 3D BRANT CADon 15-85-3458MJ MAMM SCREEN 3D BRANT CAD Patient: FRANCISCO JAVIER GUARDADO Exam Date: 03/13/2022 : 1975 Gender:F Ordering : DR LANCE GUARDADO . Admission #: [id number] Family : DR ALIX CARMONA . Order #: [id number] CLICK HERE TO VIEW EXAM RADIOLOGY REPORT [...] Treatments None Family Cancers None LOCATION: [facility] BREAST COMPOSITION: Scattered areas fibroglandular density. FINDINGS: [...] by: Erasto Bedoya M.D. on 03/13/2022 at 15:59[facility] ELODIA DOP LEG LTon 76-39-3146OK ELODIA DOP LEG LTEXAMINATION: US ELODIA DOP [...] Date: 2021-07-21 15:31NoSelect Medical Specialty Hospital - Southeast OhioCovid-19 PCR ([facility])on 54-95-8962UVCI-CoV-2 (COVID-19) RNA FLOR+probe Ql (Unsp spec)Not detectedNormalNOT DETECTEDThe [facility] Comment on above:Result Comment: This test is not yet approved or cleared by the [place] FDA. When there are no FDA-approved or cleared tests available, and other criteria are met, FDA can make tests available under an emergency access mechanism called an Emergency Use Authorization (EUA). The EUA for this test is supported by the [place] of Health and Human Service's (HHS's) declaration [...] consistent with SARS-CoV-2.Performed By: #### CVDTB #### [facility] [address] [address] [address] Tasha Smith Vital Signs Date TimeVital SignValuePerforming SdedgpahwNzzneigf12-06-3640 11:310400Body cmSelect Specialty Hospital10-11-2024 11:31-0400Body mass index (BMI) [Ratio]32.02 kg/m2Select [facility]10-11-2024 11:31-0400Body gfrciu94.99 kgNoms NurseOGDEN REGIONAL MEDICAL CENTER Gcvfyovzip37-03-1778 11:31-0400Diastolic blood unjndzuu14 mm[Hg]Noms NurseOGDEN REGIONAL MED[facility] Dksljavgsy37-90-8108 11:31-0400Systolic blood jrtbwevr705 mm[Hg]Nom NurseOGDEN REGIONAL MEDICAL [facility]ENTER Healthcare Encounters Encounter DateEncounter TypeCare ProviderFacilityStart: 04-02-2024 End: 04-32-9509qdlbhrkcdpAjdudwm R NILLFacility:CD:[id number]: 03-19-2024 End: 73-72-6873Rqqtugvsk Result EncounterCorey Geo DO Work Phone: NOVK External Department UnsolicitedStart: 03-19-2024 End: 67-66-4185Cycyywyry Result EncounterCorey Geo DO Work Phone: NOIE External Department UnsolicitedStart: 03-04-2024 End: 57-09-9817sfnjkgxzdwZBPSIM S CRAMERFacility: BellevueStart: 03-04-2024 End: 44-84-2700Bhucnpf encounter procedureMichael R NILL 126-2552Ebzbkd-Jofzy [facility] [place] Start: 33-57-2713ksaxcfisspBIVFTO CRAMERFacility:EMMA BellevueStart: 01-25-2024 End: 17-45-1557rrdlszserkAVMJSYX RICHIENot AvailableStart: 01-25-2024 End: 10-08-0225Plxzse outpatient visit 5 minutesNoms Bcp Ob Geo NurseNOMS BCP OBComment on above:Encounter for weight managementStart: 01-07-2024 End: 75-31-2490Xjunvpukv encounterMaria Olvin Castro VASCULAR TECHNOLOGIST SONOGRAPHER Work Phone: NOMS CI ORTHOPAEDICSComment on above:dentistStart: 08-13-2023 End: 44-65-6171pttlhdqihuDBU RAMEYNot AvailableStart: 03-22-2023 End: 05-32-1926mlumdtuxewOWC RAMEYNot AvailableStart: 03-12-2023 End: 86-75-1584ywbmhsjswyVBUARAI J MEYERGloria AvailableStart: 03-13-2022 End: 44-97-1752pqcwblgfnyDA LANCE FAZIOFacility:Q4Fbbpa: 03-13-2022 End: 90-60-0100ijzksypuszUF LANCE FAZIOFacility:U6Ykclh: 07-21-2021 End: 92-54-8547vabnzlanrsSK GARY QUIROZFacility:Q0Ztryg: 07-15-2021 End: 00-80-8649ybscsqoilrJL GARY Rangelcility:H5Jlgbs: 26-91-6340Jrzxizhhk for preprocedural laboratory examinationDR [facility] Start: 06-25-2021 End: 80-27-8649ksleupivzrKT ALEX [facility] CENTERFacility:W5Ooocy: 06-25-2021 End: 82-70-1167Kneecjjyb for preprocedural laboratory examinationDR ALEX [facility] Centercility:F3Cwcte: 04-17-2021 End: 85-87-7301rkxbbvrswtQM ALEX [facility] Centercility:H1 Procedures DateProcedureProcedure DetailPerforming ClinicianStart: 91-21-5182Avproshvoei Lance Geo DO Work Phone: Start: 81-72-2070TL TOMOSYNTHESIS SCREENING BICorey Geo DO Work Phone: Start: 72-37-9718VejabjzmohzHjepf Geo DO Work Phone: Start: 89-58-1759Tdtawwuyikl observation [Identifier] in Cervix by Cyto stainCorey Geo DO Work Phone: appendectomyMichael NILL Arthroscopy of kneeMichael NILL Cesarean sectionMichael NILL Repair of joint of left kneeMichael NILL Repair of ventral herniaMichael NILL Tonsillectomy and adenoidectomyMichael NILL Plan of Treatment DateCare ActivityDetailAuthorStart: 86-09-2935Ziujvozvh for malignant neoplasm of colonNOMS HealthcareStart: 22-85-3432Rflmwjzct for malignant neoplasm of cervixNOMS HealthcareStart: 66-67-5340Gewxphqbj for malignant neoplasm of breast MammogramNOMS HealthcareStart: 87-79-4100Hitqhaydh vaccinationInfluenza Vaccine (#1)NOMS HealthcareStart: 00-13-5983Htmbftqkj for malignant neoplasm of colon FOBTNOMS HealthcareStart: 12-78-0051Fkdmalzui for malignant neoplasm of colon [facility] Immunizations Immunization DateImmunizationNotesCare DvuetccoAspvngjm85-37-1707tuytjutgt virus vaccine, unspecified formulationCorey Geo DO Work Phone: [facility] Payers DatePayer CategoryPayerPolicy [id number] Health InsuranceHEALTH DESIGN PLUS [id number] DESIGN PLUS CONTIGO [id number] 2022-Present [phone] [address] [place] [id number] [id number] 2.16.840.1.349941.3.579.[id number] 2.16.840.1.512717.3.579.[id number] 2.16.840.1.104048.3.579.2.82918-47-8817Tjvegad1663724 2.16.840.1.519876.3.579.[id number] 2.16.840.1.328376.3.579.2.74658-80-3771Hgtlhld0284838 2.16.840.1.682514.3.579.2.20989-76-2594Iytcqfk3474727 2.16.840.1.137786.3.579.2.154441-23-4611Mtdoixc2426730 2.16.840.1.562104.3.579.2.230411-84-8463Lvtayrj980965 2.16.840.1.399357.3.579.2.343868-83-1492Ipgivna563337 2.16.840.1.265636.3.579.2.[id number] 2.16.840.1.626423.3.57[id number] 2.16.840.1.754229.3.579.2.79851-51-2008NyuovtoLHG011987819 Social History DateTypeDetailFacilityStart: 69-61-8458Ojlhnji smoking status NHISEx-smokerNOMS HealthcareHistory of tobacco useCurrent smokerNOMS HealthcareHistory of tobacco useCigarette SmokerNOMS HealthcareStart: 15-14-3581Lurjjjd use and exposure Smokeless tobacco non-userNOPA HealthcareStart: 38-56-5231Psphbvxlt beverage intakeCurrent drinker of alcohol (finding)NOMS HealthcareStart: 02-14-2023 End: 61-14-8350Zggwsyjua beverage intakeNOPA HealthcareStart: 02-14-2023 End: 96-12-8723Tdggths Use Disorder Identification Test - Consumption [AUDIT-C] NOMS HealthcareHow often to you have a drink containing alcohol?2-4 times a monthNOPA HealthcareHow many standard drinks containing alcohol do you have on a typical day?1 or 2NOMS HealthcareHow often do you have 6 or more drinks on 1 occasion?NeverNOPA HealthcareStart: 43-58-5378Kqymiha CommentQuit smoking 2.5 years agoNSEILING REGIONAL MED[facility] HealthcareStart: 75-75-7142Nahqlrz Comment1-2 drinks 2-4 x a month in the past yearNOPA HealthcareStart: 64-03-9841Sha assigned at birthNot on fileNOJefferson Memorial HospitalTobacco smoking statusNo Smoking Status EnteredOhiohealth Start: 31-52-7371IelBnicwjWNGD Healthcare History of Present illness Narrative 01-25-2024 Note Date & ZxpfVltnNekfcwri62-47-3947 History of Present illness Narrative* Diane Celestine [...] No providers found * [facility] Telephone encounter Note 01-07-2024 Note Date & YinxTnygPgowsdcq73-78-5973 Telephone encounter Note* Telephone Encounter - Fernie Gonzales NP - 01/07/2024 3:22 PM EDT Rx sent [facility] Note 01-07-2024 Note Date & XeqjGrmzQiixoozj35-85-2996 Miscellaneous Notes* Telephone Encounter - Fernie Gonzales NP - 01/07/2024 3:22 PM EDT Rx sent * Telephone Encounter - Laquita Pelayo - 01/07/2024 2:07 PM EDT Pt called and stated she had LT TKA 06/28/21 and has dentist appt on Sunday, if Amoxicillin couldbe called into [facility]. Her call back [phone] documented in this encounterOGDEN [facility] Telephone encounter Note 01-07-2024 Note Date & JibhCacmUipdiwmz30-89-3468 Telephone encounter Note* Telephone Encounter - Laquita Pierce - 01/07/2024 2:07 PM EDT Pt called and stated she had LT TKA 06/28/21 and has dentist appt on Sunday, if Amoxicillin couldbe called into [facility]. Her call back [phone] [facility] Healthcare Evaluation + Plan note Note Date & TypeNoteFacilityEvaluation + Plan note No data available for this section [facility] Evaluation note Note Date & TypeNoteFacilityEvaluation note* Diagnosis Encounter for weight management documented in this encounter [facility] Healthcare Evaluation note Note Date & TypeNoteFacilityEvaluation note* Diagnosis S/P TKR (total knee replacement), left- Primary documented in this encounter [facility] Discharge instructions Note Date & TypeNoteFacilityHospital Discharge instructions No data available for this section [facility] Progress note Note Date & TypeNoteFacilityProgress note No data available for this section [facility] Summary Purpose Family History No Family History Records FoundNo Family History Records Found No data available for this section No Family History Records Found Advance Directives No Advanced Directives Records FoundNo Advanced Directives Records FoundNo Advanced Directives Records Found Additional Source Comments INFORMATION SOURCE (unrecogn ized section and content) DATE CREATED AUTHOR 03/23/2022 [facility] DATE CREATED AUTHOR AUTHOR'S ORGANIZ ATION 01/28/2024 [facility] DATE CREATED AUTHOR 'S ORGANIZ ATION 04/09/2024 [facility] Care Teams (unrecognized sec tion and content) Team MemberRelationshipSpecialtyStart DateEnd Date Alix Carmona MD [address] [place] [address] PCP - [facility]08/22/22Team MemberRelationshipSpecialtyStart DateEnd Date Alix Carmona MD [address] [place] [place] [address] PCP - [facility]08/22/22Te MemberRelationshipSpecialtyStart DateEnd Date Alix Carmona MD [address] [place] [facility] [place] [address] PCP - [facility]08/22/22 Reason for Visit (unrecogniz ed section and content) ReasonOnset QecoAdekfcszdnvdyce84/23/2024 FOR RECORDS PERTAINING TO PATIENTS WHO ARE [...] BE BASED ON THE PRIMARY CLINICAL RECORDS. [facility]. provides no warranty or guarantee of the accuracy or completeness of information in this document.
[2025-03-24 15:09] LABS: Age Gdln ACOG Testing Note (.); IGP, Aptima HPV, rfx 16/18,45 Note (.)
== END 2025-03-20 14:36 | disposition home or self-care (01) ==
LOC: LAB 14:35
PROVIDERS: PCP Family Medicine; Visit Provider Physician Assistant
DX: Z01.419 Encounter for gynecological examination (general) (routine) without abnormal findings (principal)
CPT/HCPCS: 87624; 88175